=== PATIENT | male | born 1985 | race Caucasian/White ===

== ENCOUNTER → 2020-07-31 07:13 | Outpatient (CLI) | payer BC, SELFPAY ==
[2020-07-31 18:21] LABS: SARS-CoV-2 RNA PCR Negative
== END ==
PROVIDERS: Visit Provider Urology
DX: Z01.812 Encounter for preprocedural laboratory examination (principal); Z20.822 Contact with and (suspected) exposure to COVID-19
CPT/HCPCS: C9803; U0003; U0005

== ENCOUNTER 2020-08-02 01:12 | Day surgery (SDC) | payer BC, SELFPAY ==
[2020-08-01 15:57] VITALS: BMI 29.5
--- NOTE | 2020-08-01 16:08 | WPDANESEPPF ---
Anes - Initial Pre Proc Eval Procedure: Operation Date: 08/02/20 13:00 Proposed Procedures p Cystoscopy, Bilateral Retrograde Pyelogram, Bilateral Ureteroscopy with Stone Extraction, Bilateral Stent Placement - Misha Julian MD s Holmium Laser Procedure - Misha Julian MD Date/Time: 08/01/20 16:08 Surgeon: Misha Julian MD Pre Op Diagnosis: Left ureteral stone Patient Data Age: 35 Gender: M Height: 1.88 m Weight: 104.54 kg Allergies Allergy/AdvReac Type Severity Reaction Status Date / Time Penicillins Allergy Severe Hives Verified 08/02/20 11:03 trazodone Allergy Severe Hives Verified 08/02/20 11:03 Home Medications Medication Instructions Recorded Confirmed Type Multi M Vitamin 1 tab-cap PO DAILY 08/01/20 08/02/20 History desvenlafaxine succinate 50 mg PO DAILY 08/01/20 08/02/20 History gabapentin 300 mg PO TID 08/01/20 08/02/20 History hydrocodone-acetaminophen [[place]] 1 tablet PO Q4H PRN 08/01/20 08/02/20 History tamsulosin 0.4 mg PO DAILY 08/01/20 08/02/20 History Patient hx anesthesia problems: none Family hx anesthesia problems: none PMF Past Medical History Medical History Anxiety Back pain Overweight Smoker Social History Social History Smoking status: Light tobacco smoker Tobacco type: cigarettes Additional smoking assessment comments: 1 ppd x 20years Alcohol intake: current Drinks per week: 8 Alcohol use details: drinks on weekends Substance use: never Living arrangements: with family Spiritual care concerns: No Anes - Eval Final PreProcedure Day of Procedure 08/01/20 16:08 Patient weight: overweight Heart: regular rate and rhythm Lungs: clear to auscultation and normal air movement Airway: Mallampati scale class II Neurological: alert and oriented Last oral intake: >/= 8 hours ASA classification: II Emergent: no Anesthetic plan: proceed Anesthesia type and monitoring: general LMA Informed Consent: The patient's anesthetic plan and its attendant risks and benefits were discussed with the patient/family/POA. Questions were solicited and answers provided to the satisfaction of the patient/family/POA.
--- NOTE | ~2020-08-02 | CT_ITS ---
EXAMINATION: CT abdomen pelvis wo con EXAM DATE: 08/02/2020 11:46 INDICATION: Ureteral stone. TECHNIQUE: Spiral CT of the abdomen and pelvis was performed without contrast. Axial, coronal and sag ittal images were reviewed. The dose-length product (DLP) for this examination was 337.09 mGy-cm. T he exposure was tailored according to patient size (auto mA exposure control), and iterative reconstr uction (ASIR) was used as additional dose reduction technique. There is no prior study for compariso n. FINDINGS: Several punctate calyceal stones in each kidney. No ureteral stones or hydronephrosis. No b ladder stones. The prostate is unremarkable. The bladder is unremarkable. The liver, spleen, adren al glands and pancreas are unremarkable. Gallbladder is unremarkable. No biliary obstruction. Ther e is no retroperitoneal or pelvic lymphadenopathy. Small umbilical fat-containing hernia. The appendix is normal. The stomach and small bowel are unremarkable. There is expected amount of c olonic stool. No free intraperitoneal gas. The heart is normal in size. There are no pericardial or pleural effusions. The lung bases are unremarkable. Small bone island in the L5 spinous process . IMPRESSION: 1. Punctate bilateral nephrolithiasis. No ureteral stones or hydronephrosis. 2. Small umbilical hernia. Reviewed, dictated and finalized at location A.
--- NOTE | 2020-08-02 11:17 | ECG_ITS ---
Measurements Intervals [place] Rate: 73 P: 67 MS: 152 QRS: 62 QRSD: 92 T: 55 QT: 369 QTc: 407 Interpretive Statements SINUS RHYTHM DELAYED PRECORDIAL R/S TRANSITION BORDERLINE ECG Electronically Signed On 08-02-2020 14:31:49 CDT by Samson Sanford D.O.
--- NOTE | 2020-08-02 11:25 | WPDHPUPDATE1 ---
History and Physical Update Update Date/Time: 08/02/20 11:25 History and Physical has been reviewed, including an updated exam of the patient. There are NO changes in the patient's condition. Risks, benefits, and alternatives have been discussed and questions answered. Patient agrees to proceed with procedure.
--- NOTE | 2020-08-02 13:42 | SUR.PREOP ---
1120-DR. STEPHENS IN TO SEE PT, WILL OBTAIN CT SCAN. 1140-PT TO CT SCAN PER W/C. 1150-PT RETURNED FROM CT. 1155-DR. STEPHENS SPOKE WITH PT, SURGERY CANCELLED. 1210-PT DISCHARGED AMBULATORY.
== END 2020-08-02 12:10 | disposition home or self-care (01) ==
PROVIDERS: Visit Provider Urology
DX: N20.1 Calculus of ureter (principal); Z53.9 Procedure and treatment not carried out, unspecified reason
CPT/HCPCS: 74176; 82365; 88300; 93005; 99211; A9270; G0463; J2250; J3010